=== PATIENT | male | born 1985 | race Caucasian/White ===

== ENCOUNTER 2019-05-07 22:29 | Emergency (ER) | payer BC ==
[2019-05-07] MEDS ORDERED: Tetracaine HCl/PF 0.5% 4 ML Bottle EYERT STA (22:56)
--- NOTE | 2019-05-08 00:28 | EDM.PDOC ---
ED HPI GENERAL MEDICAL PROBLEM - General Chief Complaint: Eye Problems Stated Complaint: RIGHT EYE PROBLEM Time Seen by Provider: 05/08/19 00:21 Source of Information: Reports: Patient History Limitations: Reports: No Limitations - History of Present Illness INITIAL COMMENTS - FREE TEXT/NARRATIVE: Patient is a 33-year-old male with no significant past medical history presenting with right eye discomfort and foreign body sensation. 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 Patient does not remember any specific eye trauma or foreign body flying into his eye. Patient reports eye discomfort in his pretty significant in nature. Patient is taken ibuprofen with little relief. Patient denies fevers or recent illnesses. Patient denies any visual disturbances. Patient does not wear any glasses or contacts Pmhx: None Pshx: None Family Hx: noncontributory Smoking history? no Etoh use? none Drug use? none Review of systems performed and otherwise negative as noted in the HPI I have reviewed the triage vital signs Const: Well nourished, well developed, appears stated age Eyes: Patient has injection of the right conjunctiva with some swelling of the upper eyelid. There is no discharge. Extraocular movements are intact. Pupils are equal and reactive to light. Initial stain with fluorescein and Wood 's lamp demonstrated punctate foreign body on the cornea however several minutes later on slit-lamp examination there was no evidence of conjunctival foreign body, corneal abrasion, hyphema. Negative Tila sign. Eyelid was everted without any visualization of foreign body. HENT: NCAT, Neck supple without meningismus CV: RRR, Warm, well-perfused extremities RESP: CTAB, Unlabored respiratory effort GI: soft, non-tender, non-distended, no masses MSK: No gross deformities appreciated Skin: Warm, dry. No rashes Neuro: Alert, information systems security officer II-XII grossly intact. Sensation and motor function of extremities grossly intact. Psych: Appropriate mood and affect Assessment and plan: Patient is a 33-year-old male who works as a shop welder presenting with chief complaint of right eye foreign body. Differential diagnosis a painful right eye is broad admitting considerations were made. I do not believe there is any evidence of acute angle-closure glaucoma, iritis, conjunctivitis. More likely this patient has UV keratitis versus corneal abrasion versus blepharitis. Initial foreign body was seen may been dislodged during medication administration of tetracaine. Patient is patient is still experiencing some discomfort but without any visual defects and major abnormalities seen on exam the patient will be referred to ophthalmology to be seen in the morning. Patient will be initiated on erythromycin ointment for corneal abrasion until being seen by ophthalmology. Patient given return precautions all questions were addressed and answered. Patient agrees with plan. The case was discussed with Dr. David via phone who states this might be consistent with a flash burn to the eye which is a subtle finding versus a small corneal foreign body. He agreed to see the patient tomorrow in his clinic. He agreed with recommendation for erythromycin ointment and artificial tears. right eye Pain Score (Numeric/FACES): 8 - Related Data Allergies Allergy/AdvReac Type Severity Reaction Status Date / Time No Known Allergies Allergy Verified 05/07/19 22:57 Home Meds: Home Meds . [No Known Home Meds] 05/07/19 [History] Past Medical History HEENT History: Reports: None Cardiovascular History: Reports: None Respiratory History: Reports: None Gastrointestinal History: Reports: None Genitourinary History: Reports: None Musculoskeletal History: Reports: None Neurological History: Reports: None Psychiatric History: Reports: None Endocrine/Metabolic History: Reports: None Insulin Pump Model and Silo Worker: N/A Hematologic History: Reports: None Immunologic History: Reports: None Oncologic (Cancer) History: Reports: None Dermatologic History: Reports: None - Infectious Disease History Infectious Disease History: Reports: None - Past Surgical History Head Surgeries/Procedures: Reports: None Social & Family History - Family History Family Medical History: Noncontributory - Tobacco Use Smoking Status *Q: Never Smoker - Caffeine Use Caffeine Use: Reports: Coffee - Recreational Drug Use Recreational Drug Use: No ED ROS GENERAL - Review of Systems Review Of Systems: See Below ED EXAM GENERAL W FULL EYE - Physical Exam Exam: See Below Course - Vital Signs Last Recorded V/S: Last Vital Signs Temp 36.1 C 05/07/19 22:57 Pulse 92 05/07/19 22:57 Resp 18 05/07/19 22:57 BP 133/88 05/07/19 22:57 Pulse Ox 98 05/07/19 22:57 - Orders/Labs/Meds Meds: Medications Discontinued Medications Generic Name Dose Route Start Last Admin Trade Name Elfego PRN Reason Stop Dose Admin Tetracaine HCl 1 ml 05/07/19 22:56 05/07/19 23:18 Tetracaine 0.5% Steri-Unit Yolette EYERT 05/07/19 22:57 1 ml NOW STA Administration Departure - Departure Time of Disposition: 00:19 Disposition: Home, Self-Care 01 Clinical Impression: Keratitis - Discharge Information Referrals: PCP,None [Primary Care Provider] - Forms: ED Department Discharge Sepsis Event Note - Evaluation Sepsis Screening Result: No Definite Risk - Focused Exam Vital Signs: Vital Signs Temp Pulse Resp BP Pulse Ox 05/07/19 22:57 36.1 C 92 18 133/88 98 Date Exam was Performed: 05/08/19 Time Exam was Performed: 01:01
[2019-05-08] MEDS ORDERED: Erythromycin Base 0.5% Ophth Oint 1 GM Tube EYEBOTH ONE (01:02)
== END 2019-05-08 01:13 | disposition home or self-care (01) ==
LOC: MW.ED 22:29
DX: H16.9 Unspecified keratitis (principal)
CPT/HCPCS: 99283; A9270; 99282